=== PATIENT | male | born 1985 | race African-American/Black ===

== ENCOUNTER 2018-05-06 22:42 | Emergency (ER) | payer OTHER, BC ==
[~2018-05-06] VITALS: Ht 172.7 cm; Wt 99.0 kg
[2018-05-06 23:40] VITALS: BP 125/73
== END 2018-05-07 00:55 | disposition left against medical advice (07) ==
LOC: ER 22:42
DX: M25.562 Pain in left knee (principal); Z53.21 Procedure and treatment not carried out due to patient leaving prior to being seen by health care provider